=== PATIENT | female | born 1955 | race Caucasian/White ===

== ENCOUNTER 2017-06-16 12:43 | Day surgery (SDC) | payer MEDICAID ==
[2017-06-16] MEDS ORDERED: LIDOCAINE 2% MDV (20MG/ML) 20ML VIAL IV ONE (12:44)
[2017-06-16] MEDS ORDERED: PROPOFOL 10 MG/ML VIAL IV ONE (12:44)
--- NOTE | 2017-06-17 12:40 | Operative Note ---
DATE OF SURGERY: 06/16/2017 Surgeon: Juan Jose Isaac DO Referring physician: Yobany Zapata DO OPERATION: COLONOSCOPY TO THE CECUM WITH COLD BIOPSY FORCEPS POLYPECTOMY x2. INDICATION: Two adenomatous polyps. The last examination was 5 years ago. She returns at this time for surveillance. She denies any related colon symptoms. Intravenous sedation was administered by the Department of Anesthesiology and included Diprivan titrated to effect. PROCEDURE: Following informed consent from this alert individual, including a discussion of the risks and benefits of the procedure and opportunity for the patient to ask questions, the patient was in the left lateral decubitus position. Digital rectal examination was performed. No abnormalities were noted. Following this, the Olympus PCF 180 Video Colonoscope was inserted in the rectum without resistance. The rectal mucosa had a normal mucosa with normal folds and distensibility. The colonoscope was advanced up through the bowel to the level of the cecum with some slight difficulty. The cecum was reached by noting the ileocecal valve and the cecal pouch. No abnormalities were detected in this area. The colon preparation was adequate. From this point, the colonoscope was then withdrawn. No changes were noted until the transverse colon was reached. Within the transverse colon, there were two 3 mm sessile diminutive polyps noted, each removed with the application of cold biopsy forceps. No other polyps were seen upon withdrawal. Retroflexion in the rectum did demonstrate small internal hemorrhoids. The endoscope was straightened and removed. The patient tolerated the procedure well and was returned to the recovery area in stable condition. IMPRESSION: 1. Small internal hemorrhoids. 2. Two diminutive transverse colon polyps, removed with biopsy forceps. RECOMMENDATIONS: Further recommendations will be forthcoming pending the results of biopsy obtained today. Followup will also be with Dr. Yobany Zapata. As always, thank you for allowing me to participate in the care of your patient. CC: COURT [address].
== END 2017-06-16 14:27 | disposition home or self-care (01) ==
LOC: HOP 12:43
PROVIDERS: ATTEND Internal Medicine Gastroenterology
DX: Z12.11 Encounter for screening for malignant neoplasm of colon (principal); D12.3 Benign neoplasm of transverse colon; K63.5 Polyp of colon; K64.8 Other hemorrhoids; E78.00 Pure hypercholesterolemia, unspecified; I10 Essential (primary) hypertension

== ENCOUNTER 2018-11-18 14:54 | Observation (INO) | payer MEDICAID ==
[2018-11-18] MEDS ORDERED: IPRATROPIUM/ALBUTEROL (0.5MG/3MG) NEB INH ONE (15:07)
[2018-11-18] MEDS ORDERED: 0.9 % SODIUM CHLORIDE 1,000 ML BAG IV ONE (15:08)
--- NOTE | 2018-11-18 15:11 | Emergency Department Record ---
History of Present Illness - General Chief Complaint: Shortness of breath Stated Complaint: YASSINE Time Seen by Provider: 11/18/18 14:57 Source: Patient Mode of Arrival: Ambulatory Limitations: No limitations - History of Present Illness Initial Comments: The patient is here due to a one week hx of cough and congestion. She does have a hx of mild asthma but has never needed to stay in the hospital overnight. The patient did see her PCP a week ago in the office and had a neg CXR and was placed on a Zpak and Prednisone which she finished 3 days ago but her symptoms have persisted. She denies any CP, back pain, fever or sputum production. MD Complaint: Cough, Shortness of breath Onset/Timin -: Week(s) Consistency: Constant Improves With: Nothing Worsens With: Nothing Associated Symptoms: Cough Treatments Prior to Arrival: None - Related Data Allergies Allergy/AdvReac Type Severity Reaction Status Date / Time ranitidine HCl [From Zantac] Allergy Intermediate HIVES Unverified 11/18/18 13:26 Travel Screening - Travel/Exposure Within Last 30 Days Have you traveled within the last 30 days?: No Review of Systems Constitutional: Reports: Malaise. Denies: Chills, Fever Eyes: Denies: Eye discharge ENT: Reports: Congestion Respiratory: Reports: Cough, Dyspnea. Denies: Hemoptysis Cardiovascular: Denies: Chest pain Endocrine: Reports: Fatigue Gastrointestinal: Denies: Nausea Genitourinary: Denies: Dysuria Musculoskeletal: Denies: Arthralgia, Back pain Skin: Denies: Bruising Past Medical History - SOCIAL HISTORY Smoking Status: Never smoker Alcohol Use: None - RESPIRATORY Hx Respiratory Disorders: Yes Hx Bronchitis: Yes - CARDIOVASCULAR Hx Cardio Disorders: Yes Hx Hypertension: Yes Comment:: high cholesterol - NEURO Hx Neuro Disorders: No - GI Hx GI Disorders: Yes Hx Ulcer: Yes Hx of Polyps: Yes - Hx Genitourinary Disorders: No - ENDOCRINE Hx Endocrine Disorders: No - MUSCULOSKELETAL Hx Musculoskeletal Disorders: Yes Hx Arthritis: Yes - PSYCH Hx Psych Problems: Yes Hx Anxiety: Yes Hx Depression: Yes - HEMATOLOGY/ONCOLOGY Hx Hematology/Oncology Disorders: No Family Medical History Any Significant Family History?: No Physical Exam - General General Appearance: Alert, Oriented x3, Cooperative, No acute distress - Head Head exam: Atraumatic, Normocephalic - Eye Eye exam: Normal appearance, PERRL - ENT Throat exam: Normal inspection. negative: Tonsillar erythema, Tonsillar exudate - Neck Neck exam: Normal inspection, Full ROM. negative: Tenderness - Respiratory Respiratory exam: Decreased breath sounds (in the lower lobes.), Prolonged expiratory (mild.), Wheezes (at the bases.). negative: Normal lung sounds bilaterally, Accessory muscle use, Chest wall tenderness, Respiratory distress, Rhonchi, Stridor - Cardiovascular Cardiovascular Exam: Regular rate, Normal rhythm, Normal heart sounds - GI/Abdominal GI/Abdominal exam: Soft, Normal bowel sounds. negative: Tenderness - Extremities Extremities exam: Normal inspection, Full ROM, Normal capillary refill. negative: Pedal edema, Tenderness - Back Back exam: Reports: Normal inspection - Neurological Neurological exam: Alert, Normal gait, Oriented X3. negative: Abnormal gait, Motor sensory deficit - Psychiatric Psychiatric exam: negative: Anxious - Skin Skin exam: negative: Rash Course Vital Signs 11/18/18 15:00 Temperature 97.6 F Pulse Rate 102 H Respiratory 14 Rate Blood Pressure 125/86 Pulse Ox 94 L - Reevaluation(s) Reevaluation #1: The patient is doing better at this time and feels that her dyspnea is improving. On exam she is moving air better but has significant rhonchi in the lower lobes. Her repeat RA biox is 90% so due to that and the lung findings I do feel she will need to stay in the hospital overnight and the patient does agree. I then did discuss the case with Alison (EXTERMINATION SUPERVISOR) and she does accept the admission for Dr. Maldonado. 11/18/18 16:22 Medical Decision Making - Data Complexity MDM Data: Labs Ordered and/or Reviewed, X-Ray Ordered and/or Reviewed, EKG Ordered and/or Reviewed - Lab Data Result diagrams: 11/18/18 15:15 11/18/18 15:15 - EKG Data -: EKG Interpreted by Me EKG: No Acute Changes, Normal EKG - Radiology Data Radiology results: Report reviewed (CXR: Neg per Rad for acute changes.) Disposition Disposition: Admit Clinical Impression: Asthma exacerbation Qualifiers: Asthma severity: unspecified severity Asthma persistence: persistent Qualified Code(s): J45.901 - Unspecified asthma with (acute) exacerbation Disposition: Still a Patient at [facility] Decision to Admit: Admit from ER Decision to Admit Date: 11/18/18 Decision to Admit Time: 16:24 Condition: (2) Stable Instructions: Dyspnea (ED) Forms: Patient Portal Access Time of Disposition: 16:24 Quality - Quality Measures Quality Measures: N/A - Blood Pressure Screening View Details: Yes Does Patient Have Any of the Following: No Blood Pressure Classification: Pre-Hypertensive BP Reading Systolic Measurement: 125 Diastolic Measurement: 86 Screening for High Blood Pressure: < Pre-Hypertensive BP, F/U Documented > [G8950] Pre-Hypertensive Follow-up Interventions: Referral to alternative/primary care provider.
[2018-11-18 15:23] LABS: ABSOLUTE NEUTROPHIL COUNT 10.78; HEMATOCRIT 51.8 % (35.0-47.0); HEMOGLOBIN 16.7 gm/dl (11.6-16.0); MEAN CELL VOLUME 82.5 fl (81-97); MEAN CORPUSCULAR HGB CONC 32.2 g/dl (32-36); MEAN PLATELET VOLUME 9.4 fl (7.4-10.4); PLATELET COUNT 415 K/uL (130-400); RED BLOOD COUNT 6.28 M/uL (3.80-5.40); RED CELL DISTRIBUTION WIDTH 14.3 % (11.5-14.5); WHITE BLOOD COUNT W/O DIFF 15.8 K/uL (4.2-12.2)
[2018-11-18 15:29] LABS: MEAN CORPUSCULAR HEMOGLOBIN 26.5 pg (27-33)
[2018-11-18 15:34] LABS: PLATELET ESTIMATE NORMAL (NORMAL)
[2018-11-18 15:36] LABS: BLOOD UREA NITROGEN 29 mg/dL (8-23); CREATININE 1.1 mg/dL (0.5-0.9); EST GLOMERULAR FILTRATION RATE 53 mL/min
[2018-11-18 15:37] LABS: TOTAL PROTEIN 8.3 g/dL (6.6-8.7)
[2018-11-18 15:39] LABS: GLUCOSE,RANDOM 114 mg/dL (74-109)
[2018-11-18 15:41] LABS: ALT/SGPT 33 U/L (<33)
[2018-11-18 15:42] LABS: ALBUMIN 4.2 g/dL (4.0-5.0); ALKALINE PHOSPHATASE 147 U/L (35-104); AST/SGOT 32 U/L (10.0-35.0)
[2018-11-18] MEDS ORDERED: METHYLPREDNISOLONE PF 125MG/VIAL IVP ONE (15:43)
[2018-11-18] MEDS ORDERED: ALBUTEROL SULFATE (0.083%) 2.5 MG/3 ML NEB INH ONE (15:55)
[2018-11-18] MEDS ORDERED: MAGNESIUM SULFATE 16 MEQ in 0.9 % SODIUM CHLORIDE 100ML 100 ML IV ONE (16:25)
[2018-11-18] MEDS ORDERED: HYDROCHLOROTHIAZIDE PO SCH (17:58)
[2018-11-18] MEDS ORDERED: BISOPROL PO SCH (17:58)
[2018-11-18] MEDS ORDERED: BUMETANIDE 1 MG TABLET PO PRN (17:58)
[2018-11-18] MEDS: IPRATROPIUM/ALBUTEROL (0.5MG/3MG) NEB INH SCH ×2 (18:01→22:06)
--- NOTE | 2018-11-18 20:58 | History & Physical ---
History of Present Illness - Date of Service Date of Service for History & Physical: 11/18/18 - History of Present Illness Admitting Diagnosis: 1. Acute Asthma Exacerbation. History of Present Illness: 6/2 y/o female transferred from [facility] for persistent shortness of breath, frequent use of Albuterol inhaler, cough, and diaphroesis for the past w bois forte. Was treated a week ago by PCP for exacerbation of asthma with Z-pack and steroids, finished 3 days ago with no improvement of symptoms. Denies chest pain, chills, fever, sputum production. PMH includes asthma......... Upon arrival to ED SPO2 90% RA, otherwise VSS, afebrile. WBC 15.8 - likely steroid induced, platelet 415, potassium 3.3, anion gap 17.0. BUN 29, Cr 1.1. Troponin <0.010. CRP 2.6. ProBNP 78.94, EKG NSR, CXR reviewed from [facility] negative for acute process. SHe was given duo neb, supplemental O2, Solumedrol 125mg in ED, stabilized and transferred to the floor for IV steroids, O2 supplementation, observation. 11/18/18- In no obvious distress, is diaphoretic, hoarse. Feels fatigued. Improvement in dyspnea after Solumedrol and duo neb in ED PCP: Zaira Jones NP Travel Screening - Travel/Exposure Within Last 30 Days Have you traveled within the last 30 days?: No - Travel/Exposure Within Last Year Have you traveled outside the [place] in the last year?: No - Additonal Travel Details Have you been exposed to anyone with a communicable illness?: No - Travel Symptoms Symptom Screening: None Review of Systems Constitutional: Reports: Malaise. Denies: Chills, Fever Eyes: Denies: Eye discharge ENT: Reports: Congestion Respiratory: Reports: Cough, Dyspnea. Denies: Hemoptysis Cardiovascular: Denies: Chest pain Endocrine: Reports: Fatigue Gastrointestinal: Denies: Nausea Genitourinary: Denies: Dysuria Musculoskeletal: Denies: Arthralgia, Back pain Skin: Denies: Bruising Past Medical History - SOCIAL HISTORY Smoking Status: Never smoker - RESPIRATORY Hx Respiratory Disorders: Yes Hx Bronchitis: Yes - CARDIOVASCULAR Hx Cardio Disorders: Yes Hx Hypertension: Yes Comment:: high cholesterol - NEURO Hx Neuro Disorders: No - GI Hx GI Disorders: Yes Hx Ulcer: Yes Hx of Polyps: Yes - Hx Genitourinary Disorders: No - ENDOCRINE Hx Endocrine Disorders: No - MUSCULOSKELETAL Hx Musculoskeletal Disorders: Yes Hx Arthritis: Yes - PSYCH Hx Psych Problems: Yes Hx Anxiety: Yes Hx Depression: Yes - HEMATOLOGY/ONCOLOGY Hx Hematology/Oncology Disorders: No Family Medical History Any Significant Family History?: No H&P Meds/Allergies - Allergies Allergies: Allergies Allergy/AdvReac Type Severity Reaction Status Date / Time ranitidine HCl [From Zantac] Allergy Intermediate HIVES Unverified 11/18/18 13:26 - Active Medications Active Medications: Current Medications Acetaminophen (Tylenol 325mg) 650 mg PO Q6H PRN PRN Reason: PAIN - MILD(1-4)/FEVER Albuterol/Ipratropium (Duoneb) 3 ml INH RESP.Q4H.[facility] Last Admin: 11/18/18 18:01 Dose: Not Given Documented by: Bumetanide (Bumex) 2 mg PO DAILY PRN PRN Reason: ANGIOEDEMA Hydrochlorothiazide (Hctz 12.5mg) 6.25 mg PO QHS [facility] Sodium Chloride () 1,000 mls @ 100 mls/hr IV .Q10H PRN PRN Reason: LARGE VOLUME IV Loratadine (Claritin) 10 mg PO DAILY [facility] Methylprednisolone Sodium Succinate (Solu-Medrol) 60 mg IVP DAILY [facility] Metoprolol Succinate (Toprol Xl) 12.5 mg PO QHS [facility] Pantoprazole Sodium (Protonix) 40 mg PO DAILYAC [facility] Simvastatin (Zocor) 20 mg PO QHS [facility] Venlafaxine HCl (Effexor Xr) 150 mg PO DAILY [facility] Physical Exam - Vital Signs Vital Signs: Vital Signs - Last 24 Hrs Temp Pulse Pulse Resp BP BP Pulse Ox 11/18/18 20:00 97.7 F 100 H 20 142/85 98 11/18/18 18:22 22 11/18/18 17:34 79 20 112/66 92 L 11/18/18 17:30 97.0 F L 89 151/84 90 L 11/18/18 16:14 97.5 F L 78 16 123/75 90 L 11/18/18 15:55 78 16 11/18/18 15:40 75 16 11/18/18 15:00 97.6 F 102 H 14 125/86 94 L - General General Appearance: Alert, Oriented x3, Cooperative, No acute distress Limitations: No limitations - Head Head exam: Atraumatic, Normocephalic - Eye Eye exam: Normal appearance, PERRL - ENT ENT exam: Normal exam Throat exam: Normal inspection. negative: Tonsillar erythema, Tonsillar exudate - Neck Neck exam: Normal inspection, Full ROM. negative: Tenderness - Respiratory Respiratory exam: Decreased breath sounds (in the lower lobes.), Prolonged expi ratory (mild.), Wheezes (at the bases.). negative: Normal lung sounds bilaterally, Accessory muscle use, Chest wall tenderness, Respiratory distress, Rhonchi, Stridor - Cardiovascular Cardiovascular Exam: Regular rate, Normal rhythm, Normal heart sounds - GI/Abdominal GI/Abdominal exam: Soft, Normal bowel sounds. negative: Tenderness - Extremities Extremities exam: Normal inspection, Full ROM, Normal capillary refill. negative: Pedal edema, Tenderness - Back Back exam: Reports: Normal inspection - Neurological Neurological exam: Alert, Normal gait, Oriented X3. negative: Abnormal gait, Motor sensory deficit - Psychiatric Psychiatric exam: negative: Anxious - Skin Skin exam: Diaphoretic. negative: Rash Results - Labs Result Diagrams: 11/18/18 15:15 11/18/18 15:15 Labs Last 24 Hours: Laboratory Results - last 24 hr 11/18/18 11/18/18 11/18/18 15:15 15:15 15:15 WBC 15.8 H RBC 6.28 H Hgb 16.7 H Hct 51.8 H MCV 82.5 MCH 26.5 L MCHC 32.2 RDW 14.3 Plt Count 415 H MPV 9.4 Neutrophils % 62.0 Eosinophils % Not Reportable Basophils % Not Reportable Absolute Neutrophils 10.78 Lymphocytes 28.0 Monocytes 7.0 Platelet Estimate Normal RBC Morphology Normal Eosinophil Count 3.0 Sodium 141 Potassium 3.3 L Chloride 90 L Carbon Dioxide 34.0 H Anion Gap 17.0 H BUN 29 H Creatinine 1.1 H Estimated GFR 53 Random Glucose 114 H Calcium 10.3 H Total Bilirubin 0.40 AST 32 ALT 33 Alkaline Phosphatase 147 H Troponin T < 0.010 C-Reactive Protein NT-Pro-B Natriuret Pep 78.94 Total Protein 8.3 Albumin 4.2 Globulin 4.1 Albumin/Globulin Ratio 1.0 L Procalcitonin 11/18/18 11/18/18 15:15 16:19 WBC RBC Hgb Hct MCV MCH MCHC RDW Plt Count MPV Neutrophils % Eosinophils % Basophils % Absolute Neutrophils Lymphocytes Monocytes Platelet Estimate RBC Morphology Eosinophil Count Sodium Potassium Chloride Carbon Dioxide Anion Gap BUN Creatinine Estimated GFR Random Glucose Calcium Total Bilirubin AST ALT Alkaline Phosphatase Troponin T C-Reactive Protein 2.60 H NT-Pro-B Natriuret Pep Total Protein Albumin Globulin Albumin/Globulin Ratio Procalcitonin 0.066 - Imaging and Cardiology Chest x-ray Status: Report reviewed (negative for acute process) VTE H&P Assessment - Risk for VTE Risk for VTE: Yes Risk Level: Moderate Risk Assessment Date: 11/18/18 Risk Assessment Time: 20:58 VTE Orders Placed or Will Be Placed: Yes Plan - Detailed Diagnosis and Plan (1) Asthma exacerbation Current Visit: Yes Status: Acute Qualifiers: Asthma severity: unspecified severity Asthma persistence: persistent Qualified Code(s): J45.901 - Unspecified asthma with (acute) exacerbation Base Code: J45.901 - UNSPECIFIED ASTHMA WITH (ACUTE) EXACERBATION Comment: 11/18/18 - Solumedrol 60mg QD - Supplemental O2 - telemetry - IVF - Duoneb Q 4hr [place] - CBC,CMP am (2) HTN (hypertension) Current Visit: Yes Status: Acute Base Code: I10 - ESSENTIAL (PRIMARY) HYPERTENSION Comment: 11/18/18 - Metoprol succinate 12.5 QD - HCTZ 12.5mg QD - low sodium diet (3) DVT prophylaxis Current Visit: Yes Status: Acute Base Code: Z29.9 - ENCOUNTER FOR PROPHYLACTIC MEASURES, UNSPECIFIED Comment: 11/18/18 - Lovenox 40mg QD (4) Full code status Current Visit: Yes Status: Acute Base Code: Z78.9 - OTHER SPECIFIED HEALTH STATUS Comment: 11/18/18
[2018-11-18] MEDS ORDERED: HYDROCHLOROTHIAZIDE 12.5 MG CAPSULE PO SCH ×2 (22:00)
[2018-11-18] MEDS: METOPROLOL SUCC 25 MG TAB.ER PO SCH (22:49)
[2018-11-18] MEDS: SIMVASTATIN 20 MG TABLET PO SCH (22:50)
[2018-11-18] MEDS: ACETAMINOPHEN 325 MG TAB PO PRN (22:54)
[2018-11-19] MEDS: IPRATROPIUM/ALBUTEROL (0.5MG/3MG) NEB INH SCH ×5 (05:45→21:36)
[2018-11-19 06:58] LABS: ABSOLUTE NEUTROPHIL COUNT 14.12; BASO % 0.1 % (0-6); HEMATOCRIT 49.2 % (35.0-47.0); HEMOGLOBIN 15.8 gm/dl (11.6-16.0); LYMPH % 9.8 % (16-45); MEAN CORPUSCULAR HEMOGLOBIN 26.6 pg (27-33); MEAN CORPUSCULAR HGB CONC 32.1 g/dl (32-36); MEAN PLATELET VOLUME 9.6 fl (7.4-10.4); PLATELET COUNT 345 K/uL (130-400); RED BLOOD COUNT 5.93 M/uL (3.80-5.40); WHITE BLOOD COUNT W/O DIFF 16.4 K/uL (4.2-12.2)
[2018-11-19] MEDS: PANTOPRAZOLE SODIUM 40 MG TABLET PO SCH (06:59)
[2018-11-19 07:22] LABS: ALBUMIN 3.7 g/dL (4.0-5.0); BILIRUBIN,TOTAL 0.4 mg/dL (0.2-1.0); TOTAL PROTEIN 7.3 g/dL (6.6-8.7)
[2018-11-19 08:17] LABS: ANISOCYTOSIS 1+; PLATELET ESTIMATE NORMAL (NORMAL)
[2018-11-19] MEDS ORDERED: HYDROCHLOROTHIAZIDE 12.5 MG CAPSULE PO SCH (10:00)
[2018-11-19] MEDS: ENOXAPARIN 40 MG/0.4 ML SYR SQ SCH (11:27)
[2018-11-19] MEDS: VENLAFAXINE ER 75 MG CAPSULE PO SCH (11:27)
[2018-11-19] MEDS: LORATADINE 10 MG TABLET PO SCH (11:29)
[2018-11-19] MEDS: METHYLPREDNISOLONE PF 125MG/VIAL IVP SCH (11:29)
--- NOTE | 2018-11-19 13:19 | Physician Progress Note ---
Subjective - Date Date of Physician Progress Note: 11/19/18 - Subjective Subjective Comment: No new nursing concerns overnight. Has remained afebrile. Patient does report she feels better than she did when she arrived to [facility] yesterday Objective - Vital Signs Vital Signs: Vital Signs - Last 24 Hrs Temp Pulse Pulse Resp BP BP Pulse Ox 11/19/18 10:17 94 H 18 99 11/19/18 07:22 98.6 F 83 18 122/90 92 L 11/19/18 05:48 74 16 92 L 11/19/18 05:46 78 16 11/19/18 04:00 97.3 F L 83 18 136/75 96 11/18/18 22:47 98.8 F 11/18/18 22:09 84 16 11/18/18 22:08 87 16 92 L 11/18/18 20:00 97.7 F 100 H 20 142/85 98 11/18/18 18:22 22 11/18/18 17:34 79 20 112/66 92 L 11/18/18 17:30 97.0 F L 89 151/84 90 L 11/18/18 16:14 97.5 F L 78 16 123/75 90 L 11/18/18 15:55 78 16 11/18/18 15:40 75 16 11/18/18 15:00 97.6 F 102 H 14 125/86 94 L - General General Appearance: Alert, Oriented x3, Cooperative, No acute distress Limitations: No limitations - Head Head exam: Atraumatic, Normocephalic - Eye Eye exam: Normal appearance, PERRL - ENT ENT exam: Normal exam Throat exam: Normal inspection. negative: Tonsillar erythema, Tonsillar exudate - Neck Neck exam: Normal inspection, Full ROM. negative: Tenderness - Respiratory Respiratory exam: Decreased breath sounds (bilat bases with scattered rhonchi). negative: Normal lung sounds bilaterally, Accessory muscle use, Chest wall tenderness, Prolonged expiratory (mild.), Respiratory distress, Rhonchi, Stridor, Wheezes (at the bases.) - Cardiovascular Cardiovascular Exam: Regular rate, Normal rhythm, Normal heart sounds - GI/Abdominal GI/Abdominal exam: Soft, Normal bowel sounds. negative: Tenderness - Extremities Extremities exam: Normal inspection, Full ROM, Normal capillary refill. negative: Pedal edema, Tenderness - Back Back exam: Reports: Normal inspection - Neurological Neurological exam: Alert, Normal gait, Oriented X3. negative: Abnormal gait, Motor sensory deficit - Psychiatric Psychiatric exam: negative: Anxious - Skin Skin exam: Dry. negative: Diaphoretic, Rash Assessment and Plan - Assessment and Plan (1) Asthma exacerbation Current Visit: Yes Status: Acute Qualifiers: Asthma severity: unspecified severity Asthma persistence: persistent Qualified Code(s): J45.901 - Unspecified asthma with (acute) exacerbation Base Code: J45.901 - UNSPECIFIED ASTHMA WITH (ACUTE) EXACERBATION Comment: 11/19/18 - WBC increaed from yesterday, likely some component of steroid induced leukocytosis but also has elevated bands - BCx2, U/A, Sputum culture - Procalcitonin 0.066 - Potassium normalized today - Holding HCTZ today for dehydration. Consider restarting tomorrow - Solumedrol 60mg QD- change to po tomorrow if continuing to improve - Supplemental O2 - telemetry - IVF - Duoneb Q 4hr [place] (2) HTN (hypertension) Current Visit: Yes Status: Acute Base Code: I10 - ESSENTIAL (PRIMARY) HYPERTENSION Comment: 11/19/18 - Metoprol succinate 12.5 QD - HCTZ on hold due to dehydration, consider restarting tomorrow - low sodium diet (3) DVT prophylaxis Current Visit: Yes Status: Acute Base Code: Z29.9 - ENCOUNTER FOR PROPHYLACTIC MEASURES, UNSPECIFIED Comment: 11/19/18 - Lovenox 40mg QD (4) Full code status Current Visit: Yes Status: Acute Base Code: Z78.9 - OTHER SPECIFIED HEALTH STATUS Comment: 11/19/18 Results - Labs Result Diagrams: 11/19/18 06:17 11/19/18 06:17 Labs Last 24 Hours: Laboratory Results - last 24 hr 11/18/18 11/18/18 11/18/18 15:15 15:15 15:15 WBC 15.8 H RBC 6.28 H Hgb 16.7 H Hct 51.8 H MCV 82.5 MCH 26.5 L MCHC 32.2 RDW 14.3 Plt Count 415 H MPV 9.4 Neutrophils % 62.0 Band Neutrophils % Lymphocytes % Monocytes % Eosinophils % Not Reportable Basophils % Not Reportable Absolute Neutrophils 10.78 Lymphocytes 28.0 Monocytes 7.0 Platelet Estimate Normal RBC Morphology Normal Anisocytosis Eosinophil Count 3.0 Sodium 141 Potassium 3.3 L Chloride 90 L Carbon Dioxide 34.0 H Anion Gap 17.0 H BUN 29 H Creatinine 1.1 H Estimated GFR 53 Random Glucose 114 H Calcium 10.3 H Total Bilirubin 0.40 AST 32 ALT 33 Alkaline Phosphatase 147 H Troponin T < 0.010 C-Reactive Protein NT-Pro-B Natriuret Pep 78.94 Total Protein 8.3 Albumin 4.2 Globulin 4.1 Albumin/Globulin Ratio 1.0 L Procalcitonin 11/18/18 11/18/18 11/19/18 15:15 16:19 06:17 WBC 16.4 H RBC 5.93 H Hgb 15.8 Hct 49.2 H MCV 83.0 MCH 26.6 L MCHC 32.1 RDW 14.0 Plt Count 345 MPV 9.6 Neutrophils % 84.0 H Band Neutrophils % 6.0 H Lymphocytes % 9.8 L Monocytes % 4.0 Eosinophils % 0.0 Basophils % 0.1 Absolute Neutrophils 14.12 Lymphocytes 6.0 L Monocytes 4.0 Platelet Estimate Normal RBC Morphology Anisocytosis 1+ Eosinophil Count Sodium Potassium Chloride Carbon Dioxide Anion Gap BUN Creatinine Estimated GFR Random Glucose Calcium Total Bilirubin AST ALT Alkaline Phosphatase Troponin T C-Reactive Protein 2.60 H NT-Pro-B Natriuret Pep Total Protein Albumin Globulin Albumin/Globulin Ratio Procalcitonin 0.066 11/19/18 06:17 WBC RBC Hgb Hct MCV MCH MCHC RDW Plt Count MPV Neutrophils % Band Neutrophils % Lymphocytes % Monocytes % Eosinophils % Basophils % Absolute Neutrophils Lymphocytes Monocytes Platelet Estimate RBC Morphology Anisocytosis Eosinophil Count Sodium 137 Potassium 3.5 Chloride 93 L Carbon Dioxide 33.0 H Anion Gap 11.0 BUN 27 H Creatinine 1.0 H Estimated GFR 60 Random Glucose 167 H Calcium 9.7 Total Bilirubin 0.40 AST 33 ALT 35 H Alkaline Phosphatase 127 H Troponin T C-Reactive Protein NT-Pro-B Natriuret Pep Total Protein 7.3 Albumin 3.7 L Globulin 3.6 Albumin/Globulin Ratio 1.0 L Procalcitonin DVT/PE Assessment - Risk for VTE Risk for VTE: No Risk Level: Moderate Risk Assessment Date: 11/18/18 Risk Assessment Time: 20:58 VTE Orders Placed or Will Be Placed: Yes - Active Medicaitons Current Medications: Current Medications Acetaminophen (Tylenol 325mg) 650 mg PO Q6H PRN PRN Reason: PAIN - MILD(1-4)/FEVER Last Admin: 11/18/18 22:54 Dose: 650 mg Documented by: Albuterol/Ipratropium (Duoneb) 3 ml INH RESP.Q4H.[place] [facility] Last Admin: 11/19/18 10:15 Dose: 3 ml Documented by: Bumetanide (Bumex) 2 mg PO DAILY PRN PRN Reason: ANGIOEDEMA Enoxaparin Sodium (Lovenox) 40 mg SQ DAILY [facility] Last Admin: 11/19/18 11:27 Dose: 40 mg Documented by: Sodium Chloride () 1,000 mls @ 100 mls/hr IV .Q10H PRN PRN Reason: LARGE VOLUME IV Loratadine (Claritin) 10 mg PO DAILY [facility] Last Admin: 11/19/18 11:29 Dose: 10 mg Documented by: Methylprednisolone Sodium Succinate (Solu-Medrol) 60 mg IVP DAILY [facility] Last Admin: 11/19/18 11:29 Dose: 60 mg Documented by: Metoprolol Succinate (Toprol Xl) 12.5 mg PO QHS [facility] Last Admin: 11/18/18 22:49 Dose: 12.5 mg Documented by: Pantoprazole Sodium (Protonix) 40 mg PO DAILYAC [facility] Last Admin: 11/19/18 06:59 Dose: 40 mg Documented by: Simvastatin (Zocor) 20 mg PO QHS [facility] Last Admin: 11/18/18 22:50 Dose: 20 mg Documented by: Venlafaxine HCl (Effexor Xr) 150 mg PO DAILY [facility] Last Admin: 11/19/18 11:27 Dose: 150 mg Documented by: AMI Plan - Labs Result Diagrams: 11/19/18 06:17 11/19/18 06:17
[2018-11-19] MEDS: 0.9 % SODIUM CHLORIDE 1000ML 1,000 ML IV PRN (19:22)
[2018-11-19] MEDS: METOPROLOL SUCC 25 MG TAB.ER PO SCH (21:20)
[2018-11-19] MEDS: SIMVASTATIN 20 MG TABLET PO SCH (21:22)
[2018-11-19] MEDS: ACETAMINOPHEN 325 MG TAB PO PRN (21:27)
[2018-11-20] MEDS: 0.9 % SODIUM CHLORIDE 1000ML 1,000 ML IV PRN ×2 (05:49→22:45)
[2018-11-20] MEDS: IPRATROPIUM/ALBUTEROL (0.5MG/3MG) NEB INH SCH (05:54)
[2018-11-20] MEDS: PANTOPRAZOLE SODIUM 40 MG TABLET PO SCH (06:46)
[2018-11-20 06:49] LABS: ABSOLUTE NEUTROPHIL COUNT 15.79; HEMATOCRIT 46.3 % (35.0-47.0); HEMOGLOBIN 14.9 gm/dl (11.6-16.0); MEAN CELL VOLUME 83.7 fl (81-97); MEAN CORPUSCULAR HEMOGLOBIN 26.9 pg (27-33); MEAN CORPUSCULAR HGB CONC 32.2 g/dl (32-36); MEAN PLATELET VOLUME 9.7 fl (7.4-10.4); PLATELET COUNT 301 K/uL (130-400); RED BLOOD COUNT 5.53 M/uL (3.80-5.40); RED CELL DISTRIBUTION WIDTH 14.1 % (11.5-14.5)
[2018-11-20 07:05] LABS: PLATELET ESTIMATE NORMAL (NORMAL)
[2018-11-20 07:08] LABS: ALB/GLOB RATIO 1.2 (1.1-1.8); ALBUMIN 3.8 g/dL (4.0-5.0); ALKALINE PHOSPHATASE 108 U/L (35-104); ALT/SGPT 33 U/L (<33); AST/SGOT 29 U/L (10.0-35.0); BLOOD UREA NITROGEN 24 mg/dL (8-23); CREATININE 0.8 mg/dL (0.5-0.9); EST GLOMERULAR FILTRATION RATE > 60 mL/min; GLUCOSE,RANDOM 135 mg/dL (74-109)
[2018-11-20] MEDS: BREO (FLUTICASONE/VILANTEROL) 100MCG/25MCG INHALER INH SCH (09:31)
[2018-11-20] MEDS: LORATADINE 10 MG TABLET PO SCH (10:03)
[2018-11-20] MEDS: METHYLPREDNISOLONE PF 125MG/VIAL IVP SCH (10:03)
[2018-11-20] MEDS: VENLAFAXINE ER 75 MG CAPSULE PO SCH (10:04)
[2018-11-20] MEDS: ENOXAPARIN 40 MG/0.4 ML SYR SQ SCH (10:04)
[2018-11-20] MEDS ORDERED: HYDROCHLOROTHIAZIDE 25 MG TABLET PO SCH (11:15)
--- NOTE | 2018-11-20 11:24 | Physician Progress Note ---
Subjective - Date Date of Physician Progress Note: 11/20/18 - Subjective Subjective Comment: No new nursing concerns over night. Has remained afebrile. Patient states she is feeling better, cough has improved although has not been able to produce any sputum for a sputum culture. Objective - Vital Signs Vital Signs: Vital Signs - Last 24 Hrs Temp Pulse Pulse Resp BP Pulse Ox 11/20/18 09:34 101 H 18 93 L 11/20/18 07:30 97.6 F 79 18 142/91 93 L 11/20/18 06:18 86 93 L 11/20/18 05:54 86 18 94 L 11/20/18 03:40 97.7 F 97 H 20 169/81 94 L 11/20/18 00:00 98.0 F 105 H 18 161/84 93 L 11/19/18 21:36 118 H 20 95 11/19/18 21:00 118 H 20 11/19/18 20:00 98.2 F 111 H 20 144/85 93 L 11/19/18 18:23 110 H 20 98 11/19/18 16:00 98.2 F 101 H 22 118/84 90 L 11/19/18 14:39 115 H 24 95 - General General Appearance: Alert, Oriented x3, Cooperative, No acute distress Limitations: No limitations - Head Head exam: Atraumatic, Normocephalic - Eye Eye exam: Normal appearance, PERRL - ENT ENT exam: Normal exam Throat exam: Normal inspection. negative: Tonsillar erythema, Tonsillar exudate - Neck Neck exam: Normal inspection, Full ROM. negative: Tenderness - Respiratory Respiratory exam: Rhonchi (fine scattered bilat bases. Improved from yesterday. Air exchange improved, improved respiratory excursion), Wheezes (fine scattered in upper lobes). negative: Normal lung sounds bilaterally, Accessory muscle use, Chest wall tenderness, Prolonged expiratory (mild.), Respiratory distress, Stridor - Cardiovascular Cardiovascular Exam: Regular rate, Normal rhythm, Normal heart sounds - GI/Abdominal GI/Abdominal exam: Soft, Normal bowel sounds. negative: Tenderness - Extremities Extremities exam: Normal inspection, Full ROM, Normal capillary refill. negative: Pedal edema, Tenderness - Back Back exam: Reports: Normal inspection - Neurological Neurological exam: Alert, Normal gait, Oriented X3. negative: Abnormal gait, Motor sensory deficit - Psychiatric Psychiatric exam: negative: Anxious - Skin Skin exam: Dry. negative: Diaphoretic, Rash Assessment and Plan - Assessment and Plan (1) Asthma exacerbation Current Visit: Yes Status: Acute Qualifiers: Asthma severity: unspecified severity Asthma persistence: persistent Qualified Code(s): J45.901 - Unspecified asthma with (acute) exacerbation Base Code: J45.901 - UNSPECIFIED ASTHMA WITH (ACUTE) EXACERBATION Comment: 11/20/18 - WBC increased from yesterday, likely some component of steroid induced leukocytosis, neutrophils normal - BCx2- preliminary report not growth, U/A pending, Sputum culture pending - Procalcitonin 0.066 - Potassium normalized today - Holding HCTZ today for dehydration. Consider restarting tomorrow - Solumedrol changed to Prednisone 40mg BID - RA SPO2 93% - telemetry- NSR - IVF - Duoneb Q 4hr WA - Possible DC home tomorrow if continued improvement and will add HCTZ back at that time. (2) HTN (hypertension) Current Visit: Yes Status: Acute Base Code: I10 - ESSENTIAL (PRIMARY) HYPERTENSION Comment: 11/20/18 - Metoprol succinate 12.5 QD - HCTZ on hold due to dehydration, restart at discharge - low sodium diet (3) DVT prophylaxis Current Visit: Yes Status: Acute Base Code: Z29.9 - ENCOUNTER FOR PROPHYLACTIC MEASURES, UNSPECIFIED Comment: 11/20/18 - Lovenox 40mg QD (4) Full code status Current Visit: Yes Status: Acute Base Code: Z78.9 - OTHER SPECIFIED HEALTH STATUS Comment: 11/20/18 Results - Labs Result Diagrams: 11/20/18 06:35 11/20/18 06:35 Labs Last 24 Hours: Laboratory Results - last 24 hr 11/20/18 11/20/18 06:35 06:35 WBC 19.0 H RBC 5.53 H Hgb 14.9 Hct 46.3 MCV 83.7 MCH 26.9 L MCHC 32.2 RDW 14.1 Plt Count 301 MPV 9.7 Neutrophils % 70.0 Eosinophils % Not Reportable Basophils % Not Reportable Absolute Neutrophils 15.79 Lymphocytes 22.0 Monocytes 8.0 Platelet Estimate Normal RBC Morphology Normal Sodium 141 Potassium 3.7 Chloride 96 L Carbon Dioxide 34.0 H Anion Gap 11.0 BUN 24 H Creatinine 0.8 Estimated GFR > 60 Random Glucose 135 H Calcium 9.5 Total Bilirubin 0.30 AST 29 ALT 33 Alkaline Phosphatase 108 H Total Protein 7.0 Albumin 3.8 L Globulin 3.2 Albumin/Globulin Ratio 1.2 DVT/PE Assessment - Risk for VTE Risk for VTE: No Risk Level: Moderate Risk Assessment Date: 11/18/18 Risk Assessment Time: 20:58 VTE Orders Placed or Will Be Placed: Yes - Active Medicaitons Current Medications: Current Medications Acetaminophen (Tylenol 325mg) 650 mg PO Q6H PRN PRN Reason: PAIN - MILD(1-4)/FEVER Last Admin: 11/19/18 21:27 Dose: 650 mg Documented by: Bumetanide (Bumex) 2 mg PO DAILY PRN PRN Reason: ANGIOEDEMA Enoxaparin Sodium (Lovenox) 40 mg SQ DAILY [facility] Last Admin: 11/20/18 10:04 Dose: 40 mg Documented by: Sodium Chloride () 1,000 mls @ 100 mls/hr IV .Q10H PRN PRN Reason: LARGE VOLUME IV Last Admin: 11/20/18 05:49 Dose: 100 mls/hr Documented by: Loratadine (Claritin) 10 mg PO DAILY [facility] Last Admin: 11/20/18 10:03 Dose: 10 mg Documented by: Metoprolol Succinate (Toprol Xl) 12.5 mg PO QHS [facility] Last Admin: 11/19/18 21:20 Dose: 12.5 mg Documented by: Pantoprazole Sodium (Protonix) 40 mg PO DAILYAC [facility] Last Admin: 11/20/18 06:46 Dose: 40 mg Documented by: Simvastatin (Zocor) 20 mg PO QHS [facility] Last Admin: 11/19/18 21:22 Dose: 20 mg Documented by: Venlafaxine HCl (Effexor Xr) 150 mg PO DAILY [facility] Last Admin: 11/20/18 10:04 Dose: 150 mg Documented by: AMI Plan - Labs Result Diagrams: 11/20/18 06:35 11/20/18 06:35
[2018-11-20] MEDS: GUAIFENESIN 1,200 MG TABLET PO SCH ×2 (13:13→22:00)
[2018-11-20 13:29] LABS: URINE APPEARANCE CLEAR; URINE BILIRUBIN NEGATIVE (NEGATIVE); URINE BLOOD NEGATIVE (NEGATIVE); URINE COLOR YELLOW; URINE GLUCOSE (UA) NEGATIVE (NEGATIVE); URINE KETONE NEGATIVE (NEGATIVE); URINE LEUKOCYTE ESTERASE NEGATIVE (NEGATIVE); URINE NITRITE NEGATIVE (NEGATIVE); URINE PROTEIN NEGATIVE (NEGATIVE); URINE UROBILINOGEN 0.2 E.U./dL (0.20 - 1.00)
[2018-11-20] MEDS: SIMVASTATIN 20 MG TABLET PO SCH (21:58)
[2018-11-20] MEDS: METOPROLOL SUCC 25 MG TAB.ER PO SCH (21:59)
[2018-11-20] MEDS ORDERED: PREDNISONE 20 MG TAB PO ONE (22:00)
[2018-11-21] MEDS: PANTOPRAZOLE SODIUM 40 MG TABLET PO SCH (06:26)
[2018-11-21 06:40] LABS: ABSOLUTE NEUTROPHIL COUNT 10.72; BASO % 0.1 % (0-6); HEMATOCRIT 43.2 % (35.0-47.0); HEMOGLOBIN 13.6 gm/dl (11.6-16.0); LYMPH % 9.1 % (16-45); MEAN CELL VOLUME 85.5 fl (81-97); MEAN CORPUSCULAR HEMOGLOBIN 26.9 pg (27-33); MEAN CORPUSCULAR HGB CONC 31.5 g/dl (32-36); MEAN PLATELET VOLUME 9.7 fl (7.4-10.4); MONO % 5.1 % (0-9); PLATELET COUNT 225 K/uL (130-400); RED BLOOD COUNT 5.05 M/uL (3.80-5.40); RED CELL DISTRIBUTION WIDTH 14.2 % (11.5-14.5); WHITE BLOOD COUNT W/O DIFF 12.5 K/uL (4.2-12.2)
[2018-11-21 06:55] LABS: ALB/GLOB RATIO 1.2 (1.1-1.8); ALBUMIN 3.5 g/dL (4.0-5.0); ALKALINE PHOSPHATASE 100 U/L (35-104); ALT/SGPT 32 U/L (<33); AST/SGOT 27 U/L (10.0-35.0); BLOOD UREA NITROGEN 20 mg/dL (8-23); CREATININE 0.7 mg/dL (0.5-0.9); EST GLOMERULAR FILTRATION RATE > 60 mL/min; GLUCOSE,RANDOM 127 mg/dL (74-109); TOTAL PROTEIN 6.5 g/dL (6.6-8.7)
[2018-11-21 07:38] LABS: ANISOCYTOSIS 1+; PLATELET ESTIMATE NORMAL (NORMAL)
[2018-11-21] MEDS: BREO (FLUTICASONE/VILANTEROL) 100MCG/25MCG INHALER INH SCH (09:48)
--- NOTE | 2018-11-21 10:14 | Discharge Summary ---
Providers Discharge Summary Date: 11/21/18 Date of admission: 11/18/18 17:28 Attending physician: BENNY WINTERS Primary care physician: Zaira Jones N.P. Physical Exam - Vital Signs Vital Signs: Vital Signs - Last 24 Hrs Temp Pulse Pulse Resp BP Pulse Ox 11/21/18 09:51 91 H 18 97 11/21/18 08:00 97.5 F L 70 16 131/74 93 L 11/21/18 06:00 97.5 F L 68 18 122/62 94 L 11/21/18 00:00 97.7 F 95 H 20 165/86 95 11/20/18 21:00 79 20 11/20/18 20:00 97.4 F L 79 20 140/77 95 11/20/18 17:00 97.5 F L 91 H 19 167/86 93 L 11/20/18 14:23 93 L 11/20/18 13:15 97.5 F L 98 H 18 119/83 92 L - General General Appearance: Alert, Oriented x3, Cooperative, No acute distress Limitations: No limitations - Head Head exam: Atraumatic, Normocephalic - Eye Eye exam: Normal appearance, PERRL - ENT ENT exam: Normal exam Throat exam: Normal inspection. negative: Tonsillar erythema, Tonsillar exudate - Neck Neck exam: Normal inspection, Full ROM. negative: Tenderness - Respiratory Respiratory exam: negative: Normal lung sounds bilaterally, Accessory muscle use, Chest wall tenderness, Prolonged expiratory (mild.), Respiratory distress, Rhonchi, Stridor, Wheezes - Cardiovascular Cardiovascular Exam: Regular rate, Normal rhythm, Normal heart sounds - GI/Abdominal GI/Abdominal exam: Soft, Normal bowel sounds. negative: Tenderness - Extremities Extremities exam: Normal inspection, Full ROM, Normal capillary refill. negative: Pedal edema, Tenderness - Back Back exam: Reports: Normal inspection - Neurological Neurological exam: Alert, Normal gait, Oriented X3. negative: Abnormal gait, Motor sensory deficit - Psychiatric Psychiatric exam: negative: Anxious - Skin Skin exam: Dry. negative: Diaphoretic, Rash Hospitalization - Hospitalization Admission Diagnosis: 1. Acute Asthma Exacerbation. - Problem List/Discharge Diagnosis (1) Asthma exacerbation Status: Acute Discharge Diagnosis: Asthma severity: unspecified severity Asthma persistence: persistent Qualified Code(s): J45.901 - Unspecified asthma with (acute) exacerbation Base Code: J45.901 - UNSPECIFIED ASTHMA WITH (ACUTE) EXACERBATION Comment: 11/20/18 - WBC increased from yesterday, likely some component of steroid induced leukocytosis, neutrophils normal - BCx2- preliminary report not growth, U/A pending, Sputum culture pending - Procalcitonin 0.066 - Potassium normalized today - Holding HCTZ today for dehydration. Consider restarting tomorrow - Solumedrol changed to Prednisone 40mg BID - RA SPO2 93% - telemetry- NSR - IVF - Duoneb Q 4hr WA - Possible DC home tomorrow if continued improvement and will add HCTZ back at that time. (2) HTN (hypertension) Status: Acute Base Code: I10 - ESSENTIAL (PRIMARY) HYPERTENSION Comment: 11/20/18 - Metoprol succinate 12.5 QD - HCTZ on hold due to dehydration, restart at discharge - low sodium diet (3) DVT prophylaxis Status: Acute Base Code: Z29.9 - ENCOUNTER FOR PROPHYLACTIC MEASURES, UNSPECIFIED Comment: 11/20/18 - Lovenox 40mg QD (4) Full code status Status: Acute Base Code: Z78.9 - OTHER SPECIFIED HEALTH STATUS Comment: 11/20/18 - Hospitalization Course Disposition: Home, Self-Care Hospital Course: 6/2 y/o female transferred from [facility] for persistent shortness of breath, frequent use of Albuterol inhaler, cough, and diaphroesis for the past week. Was treated a week ago by PCP for exacerbation of asthma with Z-pack and steroids, finished 3 days ago with no improvement of symptoms. Denies chest pain, chills, fever, sputum production. PMH includes asthma, depression, hyperlipidemia, seasonal allergies, HTN Upon arrival to ED SPO2 90% RA, otherwise VSS, afebrile. WBC 15.8 - likely steroid induced, platelet 415, potassium 3.3, anion gap 17.0. BUN 29, Cr 1.1. Troponin <0.010. CRP 2.6. ProBNP 78.94, EKG NSR, CXR reviewed from [facility] negative for acute process. SHe was given duo neb, supplemental O2, Solumedrol 125mg in ED, stabilized and transferred to the floor for IV steroids, O2 supplementation, observation. 11/18/18- In no obvious distress, is diaphoretic, hoarse. Feels fatigued. Improvement in dyspnea after Solumedrol and duo neb in ED 11/21/18: Hospital course uncomplicated. Responded well to Solumedrol, IVF, and supplemental oxygen support. Increase in WBC likely steroid induced as procalcitonin 0.066 and no bands on CBC. Exacerbation likely viral vs. allergy induced. Discharge home on PO steroids and follow up with PCP as scheduled PCP: Zaira Jones [employer]LY[employer] Procedures: Cardiology Procedures 11/18/18 15:07 EKG NOW 11/18/18 17:58 Pharmacy Sales Assistant .Continuous Abnormal Labs: Abnormal Lab Results 11/18/18 11/18/18 11/18/18 Range/Units 15:15 15:15 15:15 WBC 15.8 H (4.2-12.2) K/uL RBC 6.28 H (3.80-5.40) M/uL Hgb 16.7 H (11.6-16.0) gm/dl Hct 51.8 H (35.0-47.0) % MCH 26.5 L (27-33) pg MCHC (32-36) g/dl Plt Count 415 H (130-400) K/uL Neutrophils % (47-80) % Band Neutrophils % (0-5) % Lymphocytes % (16-45) % Lymphocytes (16-45) % Potassium 3.3 L (3.4-4.5) mmol/L Chloride 90 L (98-107) mmol/L Carbon Dioxide 34.0 H (22-29) mmol/L Anion Gap 17.0 H (7-16) BUN 29 H (8-23) mg/dL Creatinine 1.1 H (0.5-0.9) mg/dL Random Glucose 114 H (74-109) mg/dL Calcium 10.3 H (8.8-10.2) mg/dL ALT (<33) U/L Alkaline Phosphatase 147 H (35-104) U/L C-Reactive Protein 2.60 H (<0.5) mg/dL Total Protein (6.6-8.7) g/dL Albumin (4.0-5.0) g/dL Albumin/Globulin Ratio 1.0 L (1.1-1.8) 08/01/19 08/01/19 08/02/19 Range/Units 06:17 06:17 06:35 WBC 16.4 H 19.0 H (4.2-12.2) K/uL RBC 5.93 H 5.53 H (3.80-5.40) M/uL Hgb (11.6-16.0) gm/dl Hct 49.2 H (35.0-47.0) % MCH 26.6 L 26.9 L (27-33) pg MCHC (32-36) g/dl Plt Count (130-400) K/uL Neutrophils % 84.0 H (47-80) % Band Neutrophils % 6.0 H (0-5) % Lymphocytes % 9.8 L (16-45) % Lymphocytes 6.0 L (16-45) % Potassium (3.4-4.5) mmol/L Chloride 93 L (98-107) mmol/L Carbon Dioxide 33.0 H (22-29) mmol/L Anion Gap (7-16) BUN 27 H (8-23) mg/dL Creatinine 1.0 H (0.5-0.9) mg/dL Random Glucose 167 H (74-109) mg/dL Calcium (8.8-10.2) mg/dL ALT 35 H (<33) U/L Alkaline Phosphatase 127 H (35-104) U/L C-Reactive Protein (<0.5) mg/dL Total Protein (6.6-8.7) g/dL Albumin 3.7 L (4.0-5.0) g/dL Albumin/Globulin Ratio 1.0 L (1.1-1.8) 11/20/18 11/21/18 11/21/18 Range/Units 06:35 06:15 06:15 WBC 12.5 H (4.2-12.2) K/uL RBC (3.80-5.40) M/uL Hgb (11.6-16.0) gm/dl Hct (35.0-47.0) % MCH 26.9 L (27-33) pg MCHC 31.5 L (32-36) g/dl Plt Count (130-400) K/uL Neutrophils % 88.0 H (47-80) % Band Neutrophils % (0-5) % Lymphocytes % 9.1 L (16-45) % Lymphocytes 7.0 L (16-45) % Potassium (3.4-4.5) mmol/L Chloride 96 L (98-107) mmol/L Carbon Dioxide 34.0 H 30.0 H (22-29) mmol/L Anion Gap (7-16) BUN 24 H (8-23) mg/dL Creatinine (0.5-0.9) mg/dL Random Glucose 135 H 127 H (74-109) mg/dL Calcium (8.8-10.2) mg/dL ALT (<33) U/L Alkaline Phosphatase 108 H (35-104) U/L C-Reactive Protein (<0.5) mg/dL Total Protein 6.5 L (6.6-8.7) g/dL Albumin 3.8 L 3.5 L (4.0-5.0) g/dL Albumin/Globulin Ratio (1.1-1.8) Condition at Discharge: (2) Stable Discharge Medications - Discharge Medications Prescriptions: Prednisone [Prednisone 20Mg] 20 mg PO BID 5 Days #10 tab Benzonatate [Tessalon] 1 cap PO Q8H PRN #60 cap PRN Reason: Cough Home Medications: Ambulatory Orders Cholecalciferol (Vitamin D3) [Vitamin D3] 2,000 unit PO DAILY tab 01/29/16 [L ast Taken Unknown] Acetaminophen [Tylenol 325Mg] 650 mg PO Q6H PRN tablet 11/21/18 [Last Taken Unknown] Benzonatate [Tessalon] 1 cap PO Q8H PRN #60 cap 11/21/18 [Last Taken Unknown] Prednisone [Prednisone 20Mg] 20 mg PO BID 5 Days #10 tab 11/21/18 [Last Taken Unknown] Discharge Plan - Discharge Instructions Activity at Discharge: Increase Activity as Tolerated Diet at Discharge: Regular Diet Instructions: Dyspnea (ED) Additional Instructions: Follow up with Zaira Jones at [facility] on 12/02 as previously scheduled. Quality Measures - Quality Measures Quality Measures: Documentation of Current Medications in Medical Record, Screening for High Blood Pressure and F/U Documented - Current Medications Quality Measure: Measure #130: Documentation of Current Medications Documentation of Current Medications: <Current Medications Documented/Reviewed> [G8427] - Blood Pressure Screening Quality Measure: Screening for High Blood Pressure and Follow-Up Documented Does Patient Have Any of the Following: Active Dx of HTN Blood Pressure Classification: Normal BP Reading Systolic Measurement: 112 Diastolic Measurement: 66 Screening for High Blood Pressure: Patient Exclusion, Hx of HTN [G9744] - Elder Abuse Suspicion Index EASI Reference Information: Eric HERRERA, Guilherme Howard, Elton Farah, George Galeano.Development and validation of a tool to assist physicians identification of elder abuse: The Elder Abuse Suspicion Index (EASI ). Journal of Elder Abuse and Neglect, 2008; 20 (3): 276-300.
== END 2018-11-21 10:45 | disposition home or self-care (01) ==
LOC: ER 14:54 → MEDSURG 17:28
PROVIDERS: ADMIT Internal Medicine; ATTEND Internal Medicine
DX: J45.901 Unspecified asthma with (acute) exacerbation (principal); R05 Cough; I10 Essential (primary) hypertension; E78.00 Pure hypercholesterolemia, unspecified; M19.90 Unspecified osteoarthritis, unspecified site
CPT/HCPCS: 99285 ×2; 96374; 96375; 86140; 80053 ×4; 81003; 87070; 87040; 84145; 84484; 85027 ×4; 83880; 71046; 94640 ×6; 94761 ×2; 93005; 93010; 94760 ×2; G0378 ×4; J7512; 99217; 99220; 99225; 99226; J1650; J2930; J7030; J7613